=== PATIENT | male | born 1950 | race Caucasian/White ===

== ENCOUNTER 2019-02-05 13:43 | Emergency (ER) | payer MEDICARE, OTHER ==
[2019-02-05 13:57] VITALS: BP 159/102
--- NOTE | 2019-02-05 14:05 | ED Physician Documentation ---
PD HPI LOWER EXT INJURY - Stated complaint Stated Complaint: L FOOT INJ - Chief complaint Chief Complaint: Trauma Ext - History obtained from History obtained from: Patient - History of Present Illness PD HPI LOW EXT INJURY LOCATION: Left (He inverted his left foot today and felt a pop on the underside of the fifth metatarsal and has to walk on the heel. No other injuries. Pain is mild to nonexistent at rest.) Review of Systems Constitutional: reports: Reviewed and negative Cardiac: reports: Reviewed and negative Respiratory: reports: Reviewed and negative PD PAST MEDICAL HISTORY - Present Medications Home Medications: Ambulatory Orders Medication Instructions Recorded Confirmed Atorvastatin [Lipitor] 02/05/19 02/05/19 - Allergies Allergies/Adverse Reactions: Allergies Allergy/AdvReac Type Severity Reaction Status Date / Time No Known Drug Allergies Allergy Verified 02/05/19 13:53 PD ED PE NORMAL - Vitals Vital signs reviewed: Yes - General General: Alert and oriented X 3, No acute distress - Extremities Extremities: Other (There is no left ankle tenderness, no tenderness of any area of the dorsum of the foot but he is a little tender to the mid fifth metatarsal on the plantar side. No pain with any motion of the toes.) - Neuro Neuro: Alert and oriented X 3, Normal speech Results - Vitals Vitals: Vital Signs - 24 hr 02/05/19 13:46 Temperature 36.2 C L Heart Rate 77 Respiratory 14 Rate Blood Pressure 159/102 H O2 Saturation 98 Oxygen O2 Source Room air - Rads (name of study) L foot 3v Radiology: EMP read contemporaneously (heel spur, DJD) Departure - Departure Disposition: 01 Home, Self Care Clinical Impression: Strain of left foot Qualifiers: Encounter type: initial encounter Qualified Code(s): S96.912A - Strain of unspecified muscle and tendon at ankle and foot level, left foot, initial encounter Condition: Good Record reviewed to determine appropriate education?: Yes Instructions: ED Sprain Foot Comments: You may walk and bear weight as tolerated. Do not overdo it though. Wear the boot as needed and supportive shoes when not wearing the boot. You do not need to wear anything better in the shower. Follow-up with your doctor in a week if not better. Your blood pressure was elevated today on check into the emergency department. This does not mean that you have hypertension, it is a common phenomenon to come to the emergency department and have elevated blood pressure. I recommend that you see your primary care physician within the week to have it rechecked when you are feeling better.
--- NOTE | 2019-02-05 14:33 | XRAY Report ---
Reason: foot inj Procedure Date: 02/05/2019 Accession Number: [id number] / [id number] Procedure: XR - Foot 3 View LT CPT Code: FULL RESULT: EXAM: LEFT FOOT RADIOGRAPHY EXAM DATE: 02/05/2019 02:26 PM. CLINICAL HISTORY: Foot inj. Foot pain without known trauma. COMPARISON: None. TECHNIQUE: 3 views. FINDINGS: Bones: Normal. No fractures or bone lesions. Joints: Narrowing of left first metatarsophalangeal joint space with marginal osteophytes. Soft Tissues: Elongated plantar calcaneal enthesophyte. IMPRESSION: Left first metatarsophalangeal joint degenerative changes. RADIA
== END 2019-02-05 14:45 | disposition home or self-care (01) ==
LOC: ED 13:43
DX: S96.912A Strain of unspecified muscle and tendon at ankle and foot level, left foot, initial encounter (principal); R03.0 Elevated blood-pressure reading, without diagnosis of hypertension; X50.1XXA Overexertion from prolonged static or awkward postures, initial encounter; Y93.K1 Activity, walking an animal
CPT/HCPCS: 99283

== ENCOUNTER 2023-11-21 13:11 | Outpatient (CLI) | payer MEDICARE, OTHER ==
--- NOTE | 2023-11-21 14:49 | Ultrasound Report ---
PROCEDURE: Duplex Ext Veins Right INDICATIONS: RIGHT CALF PAIN TECHNIQUE: Real-time imaging, as well as color and pulse Doppler interrogation, were performed of the lower extr emity deep veins from the inguinal ligament to the popliteal fossa. Attempted visualization of the ca lf veins was performed. COMPARISON: None. FINDINGS: The deep veins are normally compressible, and free of intraluminal thrombus. Color and pu lse Doppler demonstrate normal phasic intraluminal flow. There is normal augmentation response to di stal compression maneuver. IMPRESSION: No deep venous thrombosis of the visualized right lower extremity. Reviewed by: Donnie Brown MD on 11/21/2023 2:48 PM PST Approved by: Donnie Brown MD on 11/21/2023 2:48 PM PST Station ID: [id number]
== END 2023-11-21 13:12 | disposition home or self-care (01) ==
LOC: DI 13:11
PROVIDERS: ATTEND Nurse Practitioner Family
DX: M79.604 Pain in right leg (principal)

== ENCOUNTER 2023-12-25 12:19 | Outpatient (CLI) | payer MEDICARE, OTHER ==
--- NOTE | 2023-12-25 15:19 | CT Report ---
PROCEDURE: Sinus INDICATIONS: PANSINUSITIS TECHNIQUE: Noncontrast 3.0 mm axial images acquired from the frontal sinuses to the mid-sella, with coronal and sagittal reformats. For radiation dose reduction, the following was used: automated exposure control , adjustment of mA and/or kV according to patient size. COMPARISON: None. FINDINGS: Image quality: Excellent. Sinuses: There is trace mucosal thickening within the left frontal sinuses. Remaining sinuses are clau ar. No fluid levels. Ostiomeatal Complexes: Ostiomeatal complexes are patent. Miscellaneous: Visualized intra-orbital contents are normal. No willard bullosa. Minimal nasal sep luis deviation. IMPRESSION: Minimal left frontal sinus mucosal thickening without fluid levels. Ostiomeatal complexes are patent. Reviewed by: Randi Baker MD on 12/25/2023 3:18 PM PST Approved by: Randi Baker MD on 12/25/2023 3:18 PM PST Station ID: [id number]
== END 2023-12-25 12:20 | disposition home or self-care (01) ==
LOC: DI 12:19
PROVIDERS: ATTEND Physician Assistant
DX: J32.4 Chronic pansinusitis (principal)

== ENCOUNTER 2024-07-04 09:01 | Emergency (ER) | payer MEDICARE, OTHER ==
--- NOTE | 2024-07-04 09:24 | ED Physician Documentation ---
PD HPI NECK PAIN - Stated complaint Stated Complaint: JOYCE,NECK PAIN - History obtained from History obtained from: Patient PD PAST MEDICAL HISTORY - Past Medical History Cardiovascular: High cholesterol - Past Surgical History Past Surgical History: Yes General: Other Ortho: Other - Present Medications Home Medications: Ambulatory Orders Medication Instructions Recorded Confirmed Acetaminophen [Tylenol] 1 tab PO PRN PRN 07/04/24 07/04/24 HYDROcod/ACETAM 5/325 [[place] 5/325] 1 ea PO Q6H PRN #18 tablet 07/04/24 dexAMETHasone [Decadron] 4 mg PO DAILY #5 tablet 07/04/24 tiZANidine [Zanaflex] 4 mg PO Q8H PRN #25 tablet 07/04/24 - Allergies Allergies/Adverse Reactions: Allergies Allergy/AdvReac Type Severity Reaction Status Date / Time No Known Drug Allergies Allergy Verified 07/04/24 09:49 - Social History Does the pt smoke?: No Smoking Status: Never smoker Does the pt have substance abuse?: No - Immunizations Immunizations are current?: Yes PD ED PE NORMAL - Vitals Vital signs reviewed: Yes - General General: Alert and oriented X 3, No acute distress, Well developed/nourished - HEENT HEENT: Ears normal, Pharynx benign ( ) - Neck Neck: Supple, no meningeal sign, No adenopathy - Cardiac Cardiac: RRR, No murmur - Respiratory Respiratory: No respiratory distress, Clear bilaterally - Back Back: No spinal TTP (but is tender at trapezius insertion spots both sides without rash nor skin sores.) - Derm Derm: Normal color, Warm and dry, No rash - Neuro Neuro: Alert and oriented X 3, lecturer of portuguese 2-12 intact, No motor deficit, No sensory deficit, Normal speech Results - Vitals Vitals: Oxygen O2 Source Room air - Labs Labs: Laboratory Tests 07/04/24 10:10 Sodium 139 Potassium 3.9 Chloride 104 Carbon Dioxide 28 Anion Gap 7.0 BUN 18 Creatinine 1.2 Estimated GFR (MDRD) 59 L Glucose 123 H Calcium 9.6 Total Bilirubin 1.3 H AST 15 ALT 13 Alkaline Phosphatase 25 L Total Protein 7.4 Albumin 4.6 Globulin 2.8 Albumin/Globulin Ratio 1.6 Lipase < 10 L - Rads (name of study) head CT Relevant Findings:: Prelim report reviewed (no acute abnormality.), EMP independent interpretation of test PD Medical Decision Making - ED course Complexity details: reviewed results (head CT no acute process. basic chemistry panel without abnormalities. this was done due to his nausdea and decreased intake for 3 days. ), considered differential (onset with posterior headache 3 days ago as climaxed during intercourse. He thought presumed migraine though was idfferent location than usual migraines. COntinued for 3 days, not improved with tryptans. Pain with ROM of the neck, and has tender at occipital ridge. ), d/w patient ED course: Head CT without acute findings. This evaluates for some processes. Does not have focal deficits to suggest CVA. no ICH (with the timing duration not able to exclude SAH loder than a day). Does not seem meningitic. He does have tenderness at occipital nerve outlet/trapezius muscle insertion at neck. I did lidocaine injection on both sides at that location, with just mild to moderate decrease in pain. Given IV meds for migraine of toradol, compazine, fluids without improvement. Then given Diladudi IV with much better improvement. Departure - Departure Disposition: 01 Home, Self Care Clinical Impression: Neck muscle strain, Coital headache Condition: Stable Record reviewed to determine appropriate education?: Yes Instructions: ED Cephalgia Unspecified, ED Sprain Strain Neck Follow-Up: Bette Francis ARNP [Primary Care Provider] - Prescriptions: dexAMETHasone [Decadron] 4 mg PO DAILY #5 tablet HYDROcod/ACETAM 5/325 [[place] 5/325] 1 ea PO Q6H PRN #18 tablet PRN Reason: Pain tiZANidine [Zanaflex] 4 mg PO Q8H PRN #25 tablet PRN Reason: Spasms Comments: Your CT scan does not show any acute abnormalities. This would in particular look for signs of acute bleeding, swelling or notable masses. The timing of your headache sounds likely to be a migraine variant called a quite ill headache. You did use your sumatriptan at home and we gave you initially medications here targeted towards migraine and neither had much effect. As such it does not sound like a classic migraine that you typically get but the cortical headache which can last for several days and you have characteristics of a muscular component as well with the tender spots in your neck and the pain down your back. Looks like the previous prescription you would received for muscle spasm was methocarbamol/Robaxin. He would said it did not really help with your back pain previously so I wrote for a different muscle relaxant called tizanidine. In addition anti-inflammatories over the next several days would make sense and add Tylenol every 4-6 hours if needed for mild pain and hydrocodone if needed for worse pain. Heat and stretching for the neck and upper back. Recheck if not improving well over the next several days. Return if worsening. Is any prescription to your preferred pharmacy. I am prescribing a short course of narcotic pain medication for you. These are potentially dangerous and addictive medications that should be used carefully. These medications may constipate you. Take an sjaa-lbo-[id number] stool softener such as docusate twice daily with plenty of water while taking these medications. If you go 24 hours without a bowel movement, take hvdy-utl-kqsntep MiraLAX, per package instructions. Do not drink or drive while taking these medications. If you received narcotic or sedating medications while in the emergency department do not drive for 24 hours. Store this medication in a safe, secure place and out of reach of children. It is a violation of federal law to give or sell this medication to another person or to use in a manner other than prescribed. The ED will not refill narcotic prescriptions, including prescriptions lost or stolen. You can dispose of unwanted medications at the [facility], [facility]'s office or at several pharmacies such as [facility]. Forms: PCP List Discharge Date/Time: 07/04/24 11:45
[2024-07-04 09:54] VITALS: O2SAT 100
[2024-07-04] MEDS: DEXAMETHASONE 10 MG/ML VIAL IVP STA (10:10)
--- NOTE | 2024-07-04 10:10 | CT Report ---
PROCEDURE: Head WO INDICATIONS: abrupt headache TECHNIQUE: Noncontrast 4.5 mm thick angled axial sections acquired from the foramen magnum to the vertex. For r adiation dose reduction, the following was used: automated exposure control, adjustment of mA and/or kV according to patient size. COMPARISON: Sinus CT dated 12/25/2023. FINDINGS: Image quality: Excellent. CSF spaces: Basal cisterns are patent. No extra-axial fluid collections. Ventricles are normal in size and shape. Brain: No midline shift. No intracranial masses or hemorrhage. Patel-white matter interface is norm al. Skull and face: Calvarium and visualized facial bones are intact, without suspicious lesions. Sinuses: Visualized sinuses and mastoids are clear. IMPRESSION: No acute intracranial pathology. Reviewed by: Monica Cadet MD on 07/04/2024 9:09 AM RADHA Approved by: Monica Cadet MD on 07/04/2024 9:09 AM RADHA Station ID: [id number]
[2024-07-04] MEDS: PROCHLORPERAZINE 10 MG/2 ML VIAL IVP STA (10:11)
[2024-07-04] MEDS: KETOROLAC 30 MG/ML VIAL IVP STA (10:11)
[2024-07-04] MEDS: SODIUM CHLORIDE 0.9% 1,000 ML IV STA (10:19)
[2024-07-04 10:35] LABS: ALBUMIN 4.6 g/dL (3.2-5.5); ALBUMIN/GLOBULIN RATIO 1.6 (1.0-2.2); ALKALINE PHOSPHATASE 25 IU/L (42-121); ALT ALANINE AMINOTRANSFERASE 13 IU/L (10-60); AST ASPARTATE AMINOTRANSFERASE 15 IU/L (10-42); BILIRUBIN,TOTAL 1.3 mg/dL (0.2-1.0); BUN - BLOOD UREA NITROGEN 18 mg/dL (6-20); CALCIUM 9.6 mg/dL (8.5-10.3); CARBON DIOXIDE - CO2 28 mmol/L (21-32); CHLORIDE 104 mmol/L (101-111); CREATININE 1.2 mg/dL (0.6-1.3); GFR - MDRD 59 (>89); GLUCOSE 123 mg/dL (74-104); POTASSIUM 3.9 mmol/L (3.5-4.5); SODIUM 139 mmol/L (135-145); TOTAL PROTEIN 7.4 g/dL (6.4-8.9)
[2024-07-04 10:41] LABS: LIPASE < 10 U/L (11-82)
[2024-07-04] MEDS ORDERED: HYDROmorphone 1 MG/ML CARPUJECT IVP STA (11:18)
[2024-07-04] MEDS ORDERED: DROPERIDOL 5 MG/2 ML VIAL IVP STA (11:19)
[2024-07-04 11:57] VITALS: BP 148/90
== END 2024-07-04 11:45 | disposition home or self-care (01) ==
LOC: ED 09:01
DX: S16.1XXA Strain of muscle, fascia and tendon at neck level, initial encounter (principal); G44.89 Other headache syndrome; X58.XXXA Exposure to other specified factors, initial encounter
CPT/HCPCS: 36415; 80053; 83690; 96374; 96375; 99284